=== PATIENT | male | born 2000 | race Caucasian/White ===

== ENCOUNTER 2023-05-02 06:36 | Day surgery (SDC) | payer OTHER, SELFPAY ==
--- NOTE | 2023-04-27 10:13 | PTCARENOTE ---
Addendum entered by Shanna Rodriges RN 04/27/23 10:32:
Susan @ Dr. Lovelace office notified of same.
Original Note:
Spoke with patient regarding pending surgical procedure and obtained medication list. Patient stated he takes insulin with meals and was prescribed Lantus @ [facility]. Stated he 'has not taken Lantus in a week or so- they keep changing the doses'.
States he wears a Jacqueline and when questioned, stated his current glucose reading was 282. Educated patient regarding the action of Lantus as well as contacted [employer] to reach out to patient for educational purposes. Yesy Rodas Diab.
[employer] stated 'patient should call his PCP, they should be the ones to help him with that'. I notified PCP Vivienne Thomson, stated she will reach out to patient regarding above.
--- NOTE | 2023-04-28 14:13 | PTCARENOTE ---
Abnormal blood glucose level: 274, reviewed by Dr. Valentine and advised to notify PCP. RN notified Vivienne Garcia who advised that pt has not been taking insulin and is non-compliant w/appointment. PCP will continue to reach out to pt. No
further actions requested.
[2023-05-02] VITALS (9 sets, daily range): BP systolic 108–171; BP diastolic 89–108; BMI 40.7
[2023-05-02] MEDS: TYLENOL 1000 MG PO (10:52)
[2023-05-02 10:59] LABS: Glucose - Point of Care 162 mg/dl (70-99)
[2023-05-02] MEDS: IC GREEN 2.5 MG IV (11:15)
[2023-05-02] MEDS: NORMOSOL-R 1000 IV (11:20)
--- NOTE | 2023-05-02 13:14 | W.IMMPOSTOP ---
Surgical Immed Post Op Note
-
Primary Surgeon: Radu
Assisting: Leonor VALLADARESA, Faisal PARISH
Pre-op Diagnosis: Biliary colic
Post-op Diagnosis: Same
Procedure Performed: Robot assisted laparoscopic cholecystectomy
Anesthesia Type: GETA
Specimen / Cultures: Gallbladder
Estimated Blood Loss: 10cc
Complications: None immediate
Operative Findings: Floppy gallbladder with no adhesions
--- NOTE | 2023-05-02 13:15 | OR.RPT ---
Operative Report
Operative Report
Primary Surgeon: Radu
Assisting: Leonor FURNITURE ASSOCIATE, Faisal FURNITURE ASSOCIATE
Pre-op Diagnosis: Biliary colic
Post-op Diagnosis: Same
Procedure Performed: Robot assisted laparoscopic cholecystectomy
Anesthesia Type: GETA
Specimen / Cultures: Gallbladder
Estimated Blood Loss: 10cc
Complications: None immediate
Operative Findings: Floppy gallbladder with no adhesions
Date of Surgery:� 05/02/23
Indications: This 22M developed biliary colic. Laparoscopic cholecystectomy was elected.
Description of procedure: The patient was placed on the operating table in the supine position. General anesthesia was induced. A time-out was completed verifying correct patient, procedure, site, positioning, and special equipment prior to
beginning this procedure. An orogastric tube was placed. The abdomen was prepped and draped in the usual sterile fashion. The drain was prepped into the field. The drain was prepped into the field. A stab incision was made in left upper quadrant and
the Veress needle was inserted. Proper position was confirmed by aspiration and saline meniscus test. The abdomen was insufflated with carbon dioxide to a pressure of 12mmHg. The patient tolerated insufflation well.
A 8mm trocar was then inserted above the umbilicus. The laparoscope was inserted and the abdomen inspected. No injuries from initial trocar placement or Veress needle insertion were noted. Additional 8mm trocars were then inserted in the following
locations: two in the right lower quadrant and to the left of the umbilicus and just above. The abdomen was inspected and no abnormalities were found. The table was placed in the reverse Trendelenburg position with the right side up. The dome of the
gallbladder was grasped with an atraumatic grasper and retracted over the dome of the liver. The infundibulum was then grasped with an atraumatic grasper and retracted toward the right lower quadrant. This maneuver exposed Calot�s triangle. The
peritoneum overlying the gallbladder infundibulum was then incised and the cystic duct and cystic artery identified and circumferentially dissected so that a clear view of the liver was achieved through a window between the cystic duct an cystic
artery. At this time, the only two structures going into the gallbladder were the cystic artery and cystic duct. The common duct was identified with ICG and protected.
The cystic duct was then doubly clipped and divided. The cystic artery was controlled with bipolar and divided. The gallbladder was then dissected from its peritoneal attachments by electrocautery. Hemostasis was assured and the gallbladder was
removed using an endoscopic retrieval bag placed through the umbilical port. The gallbladder was passed off the table as a specimen. The gallbladder fossa was closely inspected and hemostasis was again assured. There was no evidence of bleeding from
the gallbladder fossa or cystic artery or leakage of the bile from the cystic duct stump. The umbilical trocar site was closed at the fascial level with 2-0 PDS. Secondary trocars were removed under direct vision and noted to be hemostatic. The
abdomen was allowed to collapse. The skin was closed with subcuticular sutures of 4-0 monocryl and topical skin adhesive. The orogastric tube was removed.
The patient tolerated the procedure well and was taken to the postanesthesia care unit in stable condition.
[2023-05-02 13:44] LABS: Glucose - Point of Care 200 mg/dl (70-99)
[2023-05-02] MEDS: NOVOLOG vial 1 UNITS SC (13:48)
[2023-05-02] MEDS: ZOFRAN 4 MG IV (13:54)
[2023-05-02] MEDS: COMPAZINE 5 MG IV (15:37)
== END 2023-05-02 15:52 | disposition home or self-care (01) ==
LOC: SDS 06:36
PROVIDERS: ATTENDING PHYSICIAN Surgery; FAMILY PHYSICIAN Physician Assistant
DX: K80.10 Calculus of gallbladder with chronic cholecystitis without obstruction (principal); D13.5 Benign neoplasm of extrahepatic bile ducts
CPT/HCPCS: 47562; 88304; 82962

== ENCOUNTER 2023-10-25 08:22 | Emergency (ER) | payer OTHER, SELFPAY ==
[2023-10-25 08:24] VITALS: BP 174/114
[2023-10-25 08:29] LABS: Glucose - Point of Care 296 mg/dl (70-99)
[2023-10-25 08:41] VITALS: BMI 39.0
[2023-10-25] MEDS: NSS 1000 IV (09:59)
[2023-10-25 10:11] LABS: % Basophils 0.4 % (0-2); % Immature Granulocytes 0.5 % (0-0.5); % Lymphocytes 18.3 % (20.5-51.1); % Monocytes 6.4 % (1.7-9.3); % Neutrophils 73.4 % (42.2-75.2); Absolute Eosinophils 0.1 10^3/uL (0-0.7); Absolute Immature Granulocytes 0.1 10^3/uL (0-0.05); Absolute Lymphocytes 1.7 10^3/uL (1.2-3.4); Absolute Monocytes 0.6 10^3/uL (0.1-0.6); Absolute Neutrophils 6.7 10^3/uL (1.4-6.5); Hematocrit 41.7 % (39.0-52.0); Hemoglobin 14.9 g/dL (13.0-18.0); Mean Corp Hgb Conc. 35.7 g/dL (33.0-37.0); Mean Corpuscular Hgb 31.8 pg (27.0-31.0); Mean Corpuscular Volume 89.1 fL (80.0-94.0); Mean Platelet Volume 9.5 fL (7.4-10.4); Nucleated Red Blood Cells % 0 % (-); Platelet Count 224 10^3/uL (130-400); Red Blood Cell Count 4.68 10^6/uL (4.70-6.10); Red Cell Dist. Width 11.9 % (11.5-14.5); White Blood Cell Count 9.1 10^3/uL (4.8-10.8)
[2023-10-25 10:43] LABS: ALT (SGPT) 40 U/L (0-50); AST (SGOT) 28 U/L (17-59); Albumin 4.1 g/dl (3.5-5.0); Alkaline Phosphatase 129 U/L (38-126); Blood Urea Nitrogen 13 mg/dl (9-20); Calcium 9.5 mg/dl (8.4-10.2); Carbon Dioxide 28 mmol/L (22-30); Chloride 101 mmol/L (98-107); Estimated Creatinine Clearance > 125 ml/min; Glucose 311 mg/dl (70-99); Magnesium 1.7 mg/dl (1.6-2.3); Potassium 4.4 mmol/L (3.5-5.1); Sodium 136 mmol/L (135-145); Total Bilirubin 0.6 mg/dl (0.2-1.3); eGFR > 60.00
[2023-10-25 10:50] LABS: B-Hydroxybutyrate 0.16 mmol/L (0.02-0.27)
[2023-10-25 11:16] VITALS: BP 162/96
--- NOTE | 2023-10-25 11:17 | ED.GENMED ---
History of Present Illness
General
Chief Complaint: Blood Sugar Problem
Source: patient
Exam Limitations: none
Time Seen by Provider: 10/25/23 08:33
Nursing documentation reviewed up to this point in time: agreed with
History of Present Illness
History of Present Illness:
Patient diagnosed with diabetes when he was 18 years old, presents to ED secondary to continual elevated blood sugar, despite medications, as prescribed by his primary care physician. Patient was taking NovoLog with Lantus, but has been
discontinued in favor of Ozempic recently. Prior to that, Mounjaro was recommended by his primary care physician, but his insurance did not approve it. Patient has been experiencing urinary frequency and urgency. Denies fever or chills. Denies
weakness. Denies dizziness. Denies abdominal pain. Denies nausea or vomiting.
Past History
Past History
ED Past Medical History: Asthma, HTN, NIDDM and Other (PNA,)
ED Past Surgical History: None
Social History
Tobacco: Smoker
Alcohol: None
Drug: Marijuana
Personal: Single
Living: with family
Review of Systems
Review of Systems
Allergies reviewed?: Yes
All Other Systems: ROS reviewed and negative except as documented in HPI and ROS
Constitutional: Reports no symptoms
EENT: Reports no symptoms
Respiratory: Reports no symptoms
Cardiac: Reports no symptoms
ABD/GI: Reports no symptoms; Denies abdominal pain, nausea or vomiting
Musculoskeletal: Reports no symptoms
Skin: Reports no symptoms
Endocrine: Reports polyuria and polydipsia
Phy Exam
Physical Exam
Physical Exam:
Physical Exam
General: no apparent distress, not acutely ill. afebrile. overweight.
Head: nc/at. eomi
Neck: supple. no meningeal signs.
Heart: s1/s2 regular rate and rhythm, no murmur. equal radial pulses.
Lungs: no acute respiratory distress. clear bilaterally
Abdomen: normal bowel sounds. not tender.
Neuro: alert and oriented. no focal neurological deficits
Skin: no rash
Psychiatric: well kept. interactive and cooperative
Extremities: no edema. no calf tenderness.
Course
Orders/Labs/Results
Orders:
Orders
10/25/23 09:45
0.9% Sodium Chloride 1000 ml [Nss] 1,000 ml IV BOLUS
10/25/23 09:51
Acetone [B-Hydroxybutyrate] Urgent
Complete Blood Count/With Diff Urgent
Comprehensive Metabolic Panel Urgent
Hemoglobin A1c [Glycohemoglobin (HgbA1c)] Urgent
Magnesium Urgent
Urinalysis Reflex To Culture Urgent
Date Specimen was Collected: 10/25/23
Time Specimen was Collected: 09:49
Abnormal Lab Results
10/25/23 10/25/23 10/25/23
09:51 11:35
RBC 4.68 L 10^6/uL
(4.70-6.10)
MCH 31.8 H pg
(27.0-31.0)
Abs Immat Gran (auto) 0.1 H 10^3/uL
(0-0.05)
Absolute Neuts (auto) 6.7 H 10^3/uL
(1.4-6.5)
Lymphocytes % 18.3 L %
(20.5-51.1)
Creatinine 0.6 L mg/dL
(0.7-1.3)
Glucose 311 H mg/dl
(70-99)
Hemoglobin A1c 10.0 H %
(4.0-5.6)
Alkaline Phosphatase 129 H U/L
(38-126)
Urine Glucose 3+ A
(Negative)
POC Glucose 296 H mg/dl 309 H mg/dl
(70-99) (70-99)
10/25/23 09:51
10/25/23 09:51
Vital Signs
Initial and Last Documented VS:
Initial Vital Signs
Temp Pulse Resp BP Pulse Ox
98.8 F 110 22 174/114 99
10/25/23 08:24 10/25/23 08:24 10/25/23 08:24 10/25/23 08:24 10/25/23 08:24
Last Documented Vital Signs
Temp Pulse Resp BP Pulse Ox
98.8 F 84 18 162/96 95
10/25/23 08:24 10/25/23 11:16 10/25/23 11:16 10/25/23 11:16 10/25/23 11:16
MDM/Problems Addressed
MDM/Problems Addressed:
Blood sugar elevated, without anion gap. Otherwise, patient remains afebrile, hemodynamically stable, and reports improved symptoms after IV hydration.
In light of patient's continually elevated blood sugar along with elevated hemoglobin A1c, patient will be started on the following regimen with recommendations for an outpatient follow-up with outreach educator: metformin 500 mg BID and Glimepiride
2mg in AM.
Pt expresses understanding at time of discharge.
*Critical Care Note
Total Time (30-74mins, 75-104mins- exclusive of procedures): Not Applicable
ED Attending Note
-
Portions of this chart may have been created with voice recognition software.� Occasional wrong word or��sound alike� substitutions may have occurred due to the inherent limitations of voice recognition software.
Discharge Plan
Departure
Patient Disposition: Home (Routine Discharge)
Date of Disposition: 10/25/23
Time of Disposition: 12:21
Patient with high blood pressure during this ER visit?: Yes
Condition: Good
Discharge Problem:
Hyperglycemia due to diabetes mellitus
Instructions: Diabetes and diet, High Blood Sugar, Adult ED
Prescriptions:
New
metformin 500 mg tablet
500 mg PO BID Qty: 60 0RF
glimepiride 2 mg tablet
2 mg PO DAILY Qty: 30 0RF
No Action
atorvastatin 10 mg Tablet
10 mg PO DAILY
ondansetron HCl 4 mg Tablet
4 mg PO DAILY
omeprazole 20 mg Tablet,Delayed Release (Dr/Ec)
40 mg PO DAILY
unajnilt-bsm-qlgmu-vit K-lycop 400-20-300 mcg Tablet
1 tab PO DAILY
Medical Marijuana
1 dose inhalation PRN PRN (Reason: Anxiety/sleep)
insulin aspart U-100 [Novolog FlexPen U-100 Insulin] 100 unit/mL (3 mL) Insulin Pen
1 sliding scale dose SC AC
insulin glargine [Lantus Solostar U-100 Insulin] 100 unit/mL (3 mL) Insulin Pen
18 unit SC HS
oxycodone 5 mg tablet
5 - 10 mg PO Q4HPRN PRN (Reason: moderate to severe pain) Qty: 20 0RF
Referrals:
Vivienne Garcia PA [Family Provider] -
Roxie Cool NP [Specified Professional Personl] -
Stand Alone Forms: Return to Work
Activity Restrictions/Additional Instructions:
As discussed, please follow-up with your primary care physician and/or referred outreach educator for further evaluation and treatment. Your prescriptions have been sent electronically to [facility] pharmacy in [place].
Interventions
Interventions:
*Risk Screen - Suicide Last Done: 10/25/23 08:25
*General Assessment Last Done: 10/25/23 08:25
*Neglect/Abuse Screening Last Done: 10/25/23 08:25
ED- Fall Risk Assessment Last Done: 10/25/23 08:41
*ED COVID-19 Vaccine History Last Done: 10/25/23 08:41
*Nursing Disposition Last Done: 10/25/23 12:49
ED- Neurological Assessment Last Done: 10/25/23 08:41
Discharge Date and Time
Discharge Date/Time: 10/25/23 12:50
Print Language: ALBANIAN
[2023-10-25 11:20] LABS: Urine Albumin Negative (Neg - Trace); Urine Bilirubin Negative (Negative); Urine Character Clear (Clear); Urine Color Yellow; Urine Glucose 3+ (Negative); Urine Ketone Negative (Negative); Urine Leukocyte Negative (Negative); Urine Nitrite Negative (Negative); Urine Occult Blood Negative (Negative); Urine Urobilinogen Negative (Neg - 1+)
[2023-10-25 11:37] LABS: Glucose - Point of Care 309 mg/dl (70-99)
== END 2023-10-25 12:50 | disposition home or self-care (01) ==
LOC: EMR 08:22
PROVIDERS: EMERGENCY PHYSICIAN Emergency Medicine; FAMILY PHYSICIAN Physician Assistant
DX: E11.65 Type 2 diabetes mellitus with hyperglycemia (principal); I10 Essential (primary) hypertension; F17.200 Nicotine dependence, unspecified, uncomplicated; J45.909 Unspecified asthma, uncomplicated
CPT/HCPCS: 99284; 96360; 80053; 81003; 82010; 82962; 83036; 83735; 85025